=== PATIENT | female | born 1975 | race Caucasian/White ===

== ENCOUNTER 2018-04-15 16:44 | Emergency (ER) | payer OTHER ==
[~2018-04-15] VITALS: Ht 167.6 cm; Wt 103.6 kg
[~2018-04-15 16:44] MED LIST: 8 HO650T2 PO; ACET650S3 PR; ALBU17IN2 INH; ALBU83IN INH; AMLO10TA PO; ASPI81TA85 PO; ATIV2INJ2 IV; CALMOIN TOP; CARV12.5 PO; CARV6.25 OR; CRES20TA PO; CYMB60CA3 PO; FLUT22IN INH; GABA-843 PO; GABA600T4 PO; GLUC1000 OR; HEPA10004 SC; IMIT50TA PO; IMIT6INJ SQ; INSUHUMDS SC; INSULANT SC; INSULIN NPH SC; INSULIN REG SC; ISOS30TA4 PO; LOSA100T50 PO; LOVA1CAP17 PO; METO5INJ15 IV; METR5INJ IV; MULT1TAB8 PO; NORCOTAB PO; ONDA4INJ48 IV; PRAV80TA PO; PROG20CAP OR; PROT40IN4 IV; PROTPAK PO; RANI15TA PO; SING10TA32 PO; SLF IV; SODI0.9S IV; TIZA4CAP PO; [UNRECOGNIZED DRUG - CODE] IV; [UNRECOGNIZED DRUG - CODE] OU; prenatal; prenatal vitamin OR
[2018-04-15] MEDS ORDERED: K-TA10TA2 PO (22:48)
[2018-04-15] MEDS ORDERED: HYDR12.55 PO (22:48)
[2018-04-15] MEDS ORDERED: LOVE1INJ SC (22:48)
[2018-04-15] MEDS ORDERED: DULC10SU2 PR (22:48)
[2018-04-15] MEDS ORDERED: COZA100T2 PO (22:48)
[2018-04-15] MEDS ORDERED: MILK120011 PO (22:48)
[2018-04-15] MEDS ORDERED: ZOLO100T PO (22:48)
[2018-04-15] MEDS ORDERED: FLEEENE4 PR (22:48)
[2018-04-15] MEDS ORDERED: STEG5TAB PO (22:48)
[2018-04-15 22:59] VITALS: BP 186/97
[2018-04-15] MEDS ORDERED: amLODIPine 10 MG TAB PO ONE (23:00)
[2018-04-15 23:26] VITALS: BP 183/98
== END 2018-04-15 23:33 ==
LOC: M ED 16:44
DX: T14.91XA Suicide attempt, initial encounter (principal); T42.6X2A Poisoning by other antiepileptic and sedative-hypnotic drugs, intentional self-harm, initial encounter; Y92.89 Other specified places as the place of occurrence of the external cause; F32.9 Major depressive disorder, single episode, unspecified; J45.909 Unspecified asthma, uncomplicated; K21.9 Gastro-esophageal reflux disease without esophagitis; G47.33 Obstructive sleep apnea (adult) (pediatric); Z88.8 Allergy status to other drugs, medicaments and biological substances; Z88.1 Allergy status to other antibiotic agents; Z79.899 Other long term (current) drug therapy; Z79.4 Long term (current) use of insulin; Z79.82 Long term (current) use of aspirin

== ENCOUNTER → 2018-07-13 | Outpatient (REF) | payer OTHER ==
[~2018-07-13] MED LIST changes: -ATIV2INJ2 IV; +ATIV2INJ5 IV; +COZA100T2 PO; -CRES20TA PO; +CRES20TA2 PO; +DULC10SU2 PR; +FLEEENE4 PR; +HYDR-3715 PO; +HYDR12.55 PO; +K-TA10TA2 PO; +LOVE1INJ SC; +MILK120011 PO; -NORCOTAB PO; -PROG20CAP OR; +STEG5TAB PO; +ZOLO100T PO; +[UNRECOGNIZED DRUG - CODE] OR
[2018-07-13 13:36] LABS: HCG, SERUM QUANTITATIVE < 1.0 MIU/ML; THYROID STIMULATING HORMONE 0.478 uIU/ML (0.358-3.740)
[2018-07-13 13:40] LABS: LUTEINIZING HORMONE 8.3 mIU/mL
[2018-07-13 13:41] LABS: FOLLICLE STIMULATING HORMONE 5.8 mIU/mL
== END ==
LOC: M LAB REF 12:22
PROVIDERS: ATTEND Obstetrics & Gynecology
DX: N92.1 Excessive and frequent menstruation with irregular cycle (principal)

== ENCOUNTER 2018-09-15 05:39 | Day surgery (SDC) | payer OTHER ==
[~2018-09-15] VITALS: Ht 167.6 cm; Wt 101.1 kg
[~2018-09-15 05:39] MED LIST changes: +ADME100I SC; +BASA100I SC; +GABA-845 PO; +ZOLO50TA PO
[2018-09-15] MEDS ORDERED: PHENYLephrine HCL 500 MCG/5 ML (100MCG/ML) SYRINGE (J2370) ONE (05:40)
[2018-09-15] MEDS ORDERED: LIDOCAINE 1% MDV 20ML VIAL SQ PRN (06:00)
[2018-09-15 06:16] LABS: HEMATOCRIT 44.9 % (36.0-47.0); MEAN CORPUSCULAR HEMOGLOBIN 27.9 pg (27.0-33.0); MEAN CORPUSCULAR HGB CONC 33.4 g/dl (32.0-36.5); MEAN CORPUSCULAR VOLUME 83.5 fl (80.0-96.0); PLATELET COUNT, AUTOMATED 297 10^3/uL (150-450); RED BLOOD COUNT 5.38 10^6/uL (4.00-5.40); WHITE BLOOD COUNT 15.5 10^3/uL (4.0-10.0)
[2018-09-15] MEDS ORDERED: QC A650T3 PO (06:39)
[2018-09-15] MEDS ORDERED: LR 1,000 ML IV ONE (07:00)
[2018-09-15] MEDS ORDERED: PROPOFOL 200 MG/20 ML VIAL As Ordered ONE (07:04)
[2018-09-15] MEDS ORDERED: ONDANSETRON 4MG/2ML VIAL (J2405) As Ordered ONE (07:04)
[2018-09-15] MEDS ORDERED: dexameTHASONE 4 MG/ML 1ML VIAL (J1100) As Ordered ONE (07:04)
[2018-09-15] MEDS ORDERED: MIDAZOLAM INJ 2 MG/2 ML VIAL (J2250) As Ordered ONE (07:04)
[2018-09-15] MEDS ORDERED: fentaNYL 100 MCG/2 ML INJECTION (J3010) As Ordered ONE (07:04)
[2018-09-15] MEDS ORDERED: LIDOCAINE 2% INJ 100 MG/5 ML SDV (FOR ANES.) As Ordered ONE (07:04)
[2018-09-15] MEDS ORDERED: ACETAMINOPHEN 650 MG SUPP As Ordered ONE (07:22)
[2018-09-15 07:38] LABS: HCG, SERUM QUALITATIVE NEGATIVE (NEGATIVE)
[2018-09-15] MEDS ORDERED: KETOROLAC 60 MG/2 ML VIAL (J1885) As Ordered ONE (08:15)
--- NOTE | 2018-09-15 08:40 | RO ---
DATE OF PROCEDURE: 09/15/2018 Bettye is a 42-year-old female with extensive history of menometrorrhagia. After counseling in the office, a decision was made to proceed with dilation and curettage, hysteroscopy, and NovaSure ablation. The patient was also found to have an enlarged uterus on ultrasound. PREOPERATIVE DIAGNOSES: 1. Menometrorrhagia. 2. Enlarged uterus. POSTOPERATIVE DIAGNOSES: 1. Menometrorrhagia. 2. Enlarged uterus. 3. Distorted endometrial cavity with questionable fibroids. PROCEDURE: 1. Dilation and curettage. 2. Hysteroscopy. 3. NovaSure endometrial ablation. ANESTHESIA: Spinal. SURGEON: Dr. Alba [employer] SALES REPRESENTATIVE: COMPLICATIONS: None. ESTIMATED BLOOD LOSS: Less than 20 mL. SPECIMENS SENT TO THE LAB: Endometrial curettings. DESCRIPTION OF PROCEDURE: After obtaining informed consent and visiting with the patient in the preop area, she was then taken to the operating room where spinal anesthetic was found to be adequate. She was then draped and prepped in usual sterile fashion in a dorsal lithotomy position. At this point, a straight catheter to bladder was performed for approximately 100 mL of clear urine. We then placed a weighted speculum in the posterior fornix of the vagina. Using a Bond retractor, the lip of the cervix was then grasped with a single-tooth tenaculum. The uterus was sound to approximately 10 cm in size giving a cavity length of 6.5. The cervix was then serially dilated. The hysteroscope was inserted. Upon entering the endometrial cavity, the bilateral tubal lashes were visualized. The endometrial cavity appeared to be distorted but no distant polyp or fibroid was noted. At this point, the hysteroscope was removed. A sharp curettage of the endometrial lining was done and the tissues were sent to pathology for final diagnosis. We then inserted a NovaSure endometrial device. The cavity length was adjusted to 6.5. The cavity width to 4.5. A cavity test was then performed. After passing the cavity test, the device was enabled and the endometrial ablation cycle was inserted. The cycle lasted approximately 70 seconds. Good ablative process noted. Good hemostasis noted. The patient tolerated procedure well. She was then transferred to recovery room in stable condition.
[2018-09-15] MEDS ORDERED: LR 1,000 ML IV SCH (09:00)
[2018-09-15] MEDS ORDERED: ONDANSETRON 4MG/2ML VIAL (J2405) IV PRN (09:00)
[2018-09-15] MEDS ORDERED: METOCLOPRAMIDE INJ 10MG/2ML VIAL (J2765) IV PRN (09:00)
[2018-09-15] MEDS ORDERED: fentaNYL 100 MCG/2 ML INJECTION (J3010) IV PRN (09:00)
[2018-09-15] MEDS ORDERED: PERCOCET 5MG/325MG TAB PO PRN ×2 (09:00)
[2018-09-15] MEDS ORDERED: PHENYLEPHRINE HCL INJ 10 MG in D5W 100 ML IV ONE (09:45)
[2018-09-15] MEDS ORDERED: PHENYLephrine HCL 500 MCG/5 ML (100MCG/ML) SYRINGE (J2370) IV ONE (09:45)
[2018-09-15] MEDS ORDERED: ePHEDrine SULFATE 25 MG/5 ML(5MG/ML) SYRINGE IV ONE (09:45)
[2018-09-15 10:15] VITALS: BP 141/76
[2018-09-15] MEDS ORDERED: IBUPROFEN 800 MG TAB PO SCH (14:00)
== END 2018-09-15 11:15 | disposition home or self-care (01) ==
LOC: M SDC 05:39
PROVIDERS: ATTEND Obstetrics & Gynecology
DX: N92.0 Excessive and frequent menstruation with regular cycle (principal); N85.2 Hypertrophy of uterus; I10 Essential (primary) hypertension; E11.9 Type 2 diabetes mellitus without complications; K21.9 Gastro-esophageal reflux disease without esophagitis; E78.00 Pure hypercholesterolemia, unspecified; M79.7 Fibromyalgia; F32.9 Major depressive disorder, single episode, unspecified; F41.9 Anxiety disorder, unspecified; G47.30 Sleep apnea, unspecified; Z79.4 Long term (current) use of insulin; Z79.899 Other long term (current) drug therapy; Z88.8 Allergy status to other drugs, medicaments and biological substances; Z79.82 Long term (current) use of aspirin
CPT/HCPCS: 36415; 58563; 84703; 85027; 86850; 86900; 86901; 88305; J1100; J1885; J2250; J2370; J2405

== ENCOUNTER → 2018-09-28 | Outpatient (REF) ==
[~2018-09-28] MED LIST changes: +QC A650T3 PO
== END ==
LOC: M LAB LCGH 13:50
PROVIDERS: ATTEND Surgery
DX: K82.8 Other specified diseases of gallbladder (principal)

== ENCOUNTER → 2018-10-31 | Outpatient (REF) | payer OTHER ==
[2018-10-31 13:52] LABS: HEMATOCRIT 46.7 % (36.0-47.0); HEMOGLOBIN 15.7 g/dl (12.0-15.5); MEAN CORPUSCULAR HEMOGLOBIN 28.2 pg (27.0-33.0); MEAN CORPUSCULAR HGB CONC 33.6 g/dl (32.0-36.5); PLATELET COUNT, AUTOMATED 308 10^3/uL (150-450); RED BLOOD COUNT 5.56 10^6/uL (4.00-5.40); WHITE BLOOD COUNT 14.7 10^3/uL (4.0-10.0)
== END ==
LOC: M LAB REF 13:24
PROVIDERS: ATTEND Obstetrics & Gynecology
DX: N92.1 Excessive and frequent menstruation with irregular cycle (principal)

== ENCOUNTER 2021-02-16 13:17 | Emergency (ER) | payer OTHER ==
[~2021-02-16] VITALS: Ht 167.6 cm; Wt 107.3 kg
[~2021-02-16 13:17] MED LIST changes: -ASPI81TA85 PO; +ASPI81TA86 PO; -CYMB60CA3 PO; +CYMB60CA4 PO; +GABA-282 PO; +GABA-283 PO; -GABA-843 PO; -GABA-845 PO; +ISOS1TAB35 PO; -ISOS30TA4 PO; +LOSA100T45 PO; -LOSA100T50 PO; +ONDA4INJ4 IV; -ONDA4INJ48 IV; +PROV108A INH
[2021-02-16 14:07] LABS: HEMATOCRIT 45.9 % (36.0-47.0); HEMOGLOBIN 16.2 g/dl (12.0-15.5); MEAN CORPUSCULAR HEMOGLOBIN 31.4 pg (27.0-33.0); MEAN CORPUSCULAR HGB CONC 35.3 g/dl (32.0-36.5); PLATELET COUNT, AUTOMATED 192 10^3/uL (150-450); RED BLOOD COUNT 5.16 10^6/uL (4.00-5.40)
[2021-02-16 14:53] LABS: ACETAMINOPHEN LEVEL < 2.0 UG/ML (10.0-30.0); ALBUMIN 3.3 GM/DL (3.2-5.2); ALT/SGPT 24 U/L (12-78); BILIRUBIN,DIRECT < 0.1 MG/DL (0.0-0.2); BILIRUBIN,TOTAL 0.6 MG/DL (0.2-1.0); BLOOD UREA NITROGEN 15 MG/DL (7-18); CALCIUM LEVEL 9.6 MG/DL (8.5-10.1); CARBON DIOXIDE LEVEL 22 MEQ/L (21-32); CHLORIDE LEVEL 99 MEQ/L (98-107); CREATININE FOR GFR 0.62 MG/DL (0.55-1.30); ETHYL ALCOHOL (ETHANOL) < 0.003 % (0.000-0.010); GLOMERULAR FILTRATION RATE > 60.0 (>58); GLUCOSE, FASTING 307 MG/DL (70-100); SALICYLATE LEVEL 2.6 MG/DL (5.0-30.0); SODIUM LEVEL 134 MEQ/L (136-145); THYROID STIMULATING HORMONE 0.494 uIU/ML (0.358-3.740); TOTAL PROTEIN 7.2 GM/DL (6.4-8.2)
[2021-02-16 15:08] LABS: HCG, SERUM QUALITATIVE NEGATIVE (NEGATIVE)
[2021-02-16 15:22] LABS: AMPHETAMINES LEVEL URINE NEGATIVE (NEGATIVE); BARBITURATES URINE NEGATIVE (NEGATIVE); BENZODIAZEPINES URINE NEGATIVE (NEGATIVE); CANNABINOIDS URINE NEGATIVE (NEGATIVE); COCAINE METABOLITE URINE NEGATIVE (NEGATIVE); METHADONE URINE NEGATIVE (NEGATIVE); OPIATES URINE NEGATIVE (NEGATIVE); PHENCYCLIDINE URINE NEGATIVE (NEGATIVE)
[2021-02-16] MEDS ORDERED: FAMO40TA3 PO (18:45)
[2021-02-16] MEDS ORDERED: SUMA100T2 PO (18:45)
[2021-02-16] MEDS ORDERED: GABA800T4 PO (18:45)
[2021-02-16] MEDS ORDERED: LOVA1CAP17 PO (18:45)
[2021-02-16] MEDS ORDERED: AMLO1TAB24 PO (18:45)
[2021-02-16] MEDS ORDERED: BASA100I SC (18:45)
[2021-02-16] MEDS ORDERED: BUSP10TA PO (18:45)
[2021-02-16] MEDS ORDERED: CETI-24 PO (18:45)
[2021-02-16] MEDS ORDERED: LEVEMIR (INSULIN DETEMIR) 1 UNITS/0.01ML SC ONE (21:10)
[2021-02-16 22:38] VITALS: BP 152/89
== END 2021-02-16 22:44 | disposition home or self-care (01) ==
LOC: M ED 13:17
DX: F43.0 Acute stress reaction (principal); R45.851 Suicidal ideations; F41.9 Anxiety disorder, unspecified; F32.A Depression, unspecified; I10 Essential (primary) hypertension; I48.91 Unspecified atrial fibrillation; E11.9 Type 2 diabetes mellitus without complications; Z88.1 Allergy status to other antibiotic agents; Z88.8 Allergy status to other drugs, medicaments and biological substances

== ENCOUNTER 2022-09-03 02:06 | Inpatient (IN) | payer OTHER ==
[~2022-09-03] VITALS: Ht 170.2 cm; Wt 98.3 kg
[~2022-09-03 02:06] MED LIST changes: +ALBU2.5V10 INH; +ALBU6.7H6 INH; -ALBU83IN INH; +AMLO1TAB24 PO; +BUSP10TA PO; +CETI-24 PO; -COZA100T2 PO; +COZA100T3 PO; +FAMO40TA3 PO; +GABA800T4 PO; -K-TA10TA2 PO; -LOSA100T45 PO; +LOSA100T46 PO; +MONT-5 PO; +POTA-165 PO; -PROV108A INH; -SING10TA32 PO; +SUMA100T2 PO
[2022-09-03] MEDS ORDERED: ACETAMINOPHEN TAB 650MG DOSE (2X325MG) PO ONE (02:30)
[2022-09-03] MEDS ORDERED: NS 1,000 ML IV ONE (02:30)
[2022-09-03 02:35] LABS: ABG BASE EXCESS -1.4 (-2.0-2.0); ABG HCO3 25.3 MMOL/L (22.0-26.0); ABG O2 SATURATION 91.9 % (95.0-99.0); ABG PARTIAL PRESSURE CO2 50.2 mmHg (35.0-45.0); ABG PARTIAL PRESSURE O2 63.7 mmHg (75.0-100.0); ABG STANDARD HCO3 23.2 MMOL/L. (22.0-26.0); ABG TOTAL CO2 26.9 MMOL/L (22.0-29.0); ABG pH (ARTERIAL) 7.321 UNITS (7.350-7.450)
[2022-09-03 03:36] LABS: BASO # 0.1 10^3/uL (0.0-0.2); BASO % 0.9 % (0.0-1.0); EOS # 0.3 10^3/uL (0.0-0.5); EOS % 2.9 % (0.0-3.0); HEMATOCRIT 41.3 % (36.0-47.0); HEMOGLOBIN 14.3 g/dl (12.0-15.5); LYMPH # 2.4 10^3/uL (1.5-5.0); LYMPH % 23.9 % (24.0-44.0); MEAN CORPUSCULAR HEMOGLOBIN 32.1 pg (27.0-33.0); MEAN CORPUSCULAR HGB CONC 34.6 g/dl (32.0-36.5); MEAN CORPUSCULAR VOLUME 92.6 fl (80.0-96.0); MONO # 0.8 10^3/uL (0.0-0.8); MONO % 7.9 % (2.0-8.0); NEUTROPHILS # 6.4 10^3/uL (1.5-8.5); NEUTROPHILS % 63.8 % (36.0-66.0); PLATELET COUNT, AUTOMATED 261 10^3/uL (150-450); RED BLOOD COUNT 4.46 10^6/uL (4.00-5.40); WHITE BLOOD COUNT 10.1 10^3/uL (4.0-10.0)
[2022-09-03 04:02] LABS: BLOOD UREA NITROGEN 14 MG/DL (9-23); CALCIUM LEVEL 8.8 MG/DL (8.5-10.1); CARBON DIOXIDE LEVEL 29 MMOL/L (20-31); CHLORIDE LEVEL 101 MMOL/L (98-107); CREATININE FOR GFR 0.76 MG/DL (0.55-1.30); GLOMERULAR FILTRATION RATE > 60.0 (>58); GLUCOSE, FASTING 291 MG/DL (60-100); POTASSIUM SERUM 4.3 MMOL/L (3.5-5.1); SODIUM LEVEL 136 MMOL/L (136-145)
[2022-09-03] MEDS ORDERED: GLUCOSE 4GM CHEW TABLET PO PRN (04:45)
[2022-09-03] MEDS ORDERED: NS 1,000 ML IV SCH (04:45)
[2022-09-03] MEDS ORDERED: DEXTROSE 50% 50ML SYRINGE IV PRN (04:45)
[2022-09-03] MEDS ORDERED: GLUCAGON INJ 1MG VIAL SC PRN (04:45)
[2022-09-03] MEDS ORDERED: ALBUTEROL SULFATE 2.5MG/0.5ML INH NEB SOLN NEB PRN (05:50)
[2022-09-03] MEDS ORDERED: VANCOMYCIN HCL 1,000 MG, VIAL MATE ADAPTER 1 EACH in D5W 250 ML IV ONE ×2 (06:00→07:00)
[2022-09-03 06:20] LABS: INR 1.01; PARTIAL THROMBOPLASTIN TIME 24.3 SECONDS (24.8-34.2); PROTHROMBIN TIME 13.5 SECONDS (12.5-14.5)
[2022-09-03] MEDS: INSULIN LISPRO (NovoLOG) PER UNIT SC SCH ×5 (06:25→21:22)
[2022-09-03 06:31] LABS: RSV AMPLIFICATION NEGATIVE (NEGATIVE)
[2022-09-03] MEDS ORDERED: IMIT100T PO (06:31)
[2022-09-03] MEDS ORDERED: ASPI-161 PO (06:31)
[2022-09-03] MEDS ORDERED: OMEG10002 PO (06:31)
[2022-09-03] MEDS ORDERED: GABA800T4 PO (06:31)
[2022-09-03] MEDS ORDERED: CETI-14 PO (06:31)
[2022-09-03] MEDS ORDERED: TIZA10TA PO (06:31)
[2022-09-03] MEDS ORDERED: ZOLO100T PO (06:31)
[2022-09-03] MEDS ORDERED: VITMTA PO (06:31)
[2022-09-03] MEDS ORDERED: AMLO1TAB24 PO (06:31)
[2022-09-03] MEDS ORDERED: ACET1TAB37 PO (06:31)
[2022-09-03] MEDS ORDERED: LOSA100T46 PO (06:31)
[2022-09-03] MEDS ORDERED: ALBU8.5H INH (06:31)
[2022-09-03] MEDS ORDERED: PANT-23 PO (06:31)
[2022-09-03] MEDS ORDERED: FAMO40TA3 PO (06:31)
[2022-09-03] MEDS ORDERED: HOME MED LIST COMPLETE! XX SCH (06:35)
[2022-09-03] MEDS ORDERED: SERTRALINE 100 MG TAB PO SCH (09:00)
[2022-09-03] MEDS: NYSTATIN 100,000 UNITS/GM TOPICAL PWD 15GM TOP SCH ×2 (09:00→21:22)
[2022-09-03 09:54] LABS: ABG BASE EXCESS -0.2 (-2.0-2.0); ABG HCO3 27.7 MMOL/L (22.0-26.0); ABG O2 SATURATION 93.1 % (95.0-99.0); ABG PARTIAL PRESSURE CO2 59.5 mmHg (35.0-45.0); ABG PARTIAL PRESSURE O2 69.8 mmHg (75.0-100.0); ABG STANDARD HCO3 24.2 MMOL/L. (22.0-26.0); ABG TOTAL CO2 29.5 MMOL/L (22.0-29.0); ABG pH (ARTERIAL) 7.286 UNITS (7.350-7.450)
[2022-09-03] MEDS: PANTOPRAZOLE 40MG TAB (PROTONIX) PO SCH (10:00)
[2022-09-03] MEDS: CETIRIZINE (ZyrTEC) 10 MG TAB PO SCH (10:00)
[2022-09-03] MEDS: CARVedilol 12.5 MG TAB PO SCH ×2 (10:01→21:25)
[2022-09-03] MEDS: ASPIRIN 81MG ENTERIC TABLET PO SCH (10:01)
[2022-09-03] MEDS: ISOSORBIDE MON. (IMDUR) 30MG XR TAB PO SCH (10:01)
[2022-09-03 13:09] VITALS: BP 153/85; TEMP 97.8; O2SAT 98
[2022-09-03 13:40] LABS: HEMOGLOBIN A1c 11.2 % (4.0-6.0)
[2022-09-03] MEDS: VANCOMYCIN HCL 1,000 MG, VIAL MATE ADAPTER 1 EACH in D5W 250 ML IV SCH ×2 (14:42→21:21)
[2022-09-03] MEDS: MUPIROCIN 2% OINT 22 GM TUBE TOP SCH (14:42)
[2022-09-03 15:10] LABS: ABG BASE EXCESS 1.9 (-2.0-2.0); ABG HCO3 28.1 MMOL/L (22.0-26.0); ABG O2 SATURATION 92.3 % (95.0-99.0); ABG PARTIAL PRESSURE CO2 49.8 mmHg (35.0-45.0); ABG PARTIAL PRESSURE O2 61.4 mmHg (75.0-100.0); ABG STANDARD HCO3 26.1 MMOL/L. (22.0-26.0); ABG TOTAL CO2 29.6 MMOL/L (22.0-29.0); ABG pH (ARTERIAL) 7.369 UNITS (7.350-7.450)
[2022-09-03 16:16] VITALS: BP 142/70; TEMP 98.1; O2SAT 94
[2022-09-03 19:56] VITALS: BP 138/82; TEMP 97.3; O2SAT 93
[2022-09-03] MEDS ORDERED: LEVEMIR (INSULIN DETEMIR) 1 UNITS/0.01ML SC SCH (21:00)
[2022-09-03] MEDS: FAMOTIDINE 20 MG TAB PO SCH (21:23)
[2022-09-03] MEDS: TAMSULOSIN 0.4 MG CAP PO SCH (21:23)
[2022-09-03] MEDS: ACETAMINOPHEN TAB 650MG DOSE (2X325MG) PO PRN (21:23)
[2022-09-03] MEDS: ROSUVASTATIN 10 MG TAB (CRESTOR) PO SCH (21:23)
[2022-09-03 23:42] VITALS: BP 142/79; TEMP 97.1; O2SAT 93
[2022-09-04] MEDS ORDERED: UNRESOLVED CLARIFICATION ENTRY XX SCH (00:01)
[2022-09-04 03:37] VITALS: BP 136/81; TEMP 97.6; O2SAT 94
[2022-09-04 05:24] LABS: BASO # 0.1 10^3/uL (0.0-0.2); BASO % 0.7 % (0.0-1.0); EOS # 0.2 10^3/uL (0.0-0.5); EOS % 3.2 % (0.0-3.0); HEMATOCRIT 38.2 % (36.0-47.0); LYMPH # 2.1 10^3/uL (1.5-5.0); MEAN CORPUSCULAR HEMOGLOBIN 31.2 pg (27.0-33.0); MEAN CORPUSCULAR VOLUME 91.6 fl (80.0-96.0); MONO # 0.6 10^3/uL (0.0-0.8); MONO % 8.2 % (2.0-8.0); NEUTROPHILS # 4.4 10^3/uL (1.5-8.5); NEUTROPHILS % 59.5 % (36.0-66.0); PLATELET COUNT, AUTOMATED 203 10^3/uL (150-450); RED BLOOD COUNT 4.17 10^6/uL (4.00-5.40); WHITE BLOOD COUNT 7.5 10^3/uL (4.0-10.0)
[2022-09-04 05:57] LABS: VANCOMYCIN LEVEL TROUGH 14.6 UG/ML (10.0-20.0)
[2022-09-04 05:59] LABS: ALBUMIN 2.8 G/DL (3.2-5.2); ALKALINE PHOSPHATASE 71 U/L (46-116); ALT/SGPT 11 U/L (7.0-40); AST/SGOT 14 U/L (<34); BILIRUBIN,TOTAL 0.4 MG/DL (0.3-1.2); BLOOD UREA NITROGEN 10 MG/DL (9-23); CALCIUM LEVEL 8.4 MG/DL (8.5-10.1); CARBON DIOXIDE LEVEL 29 MMOL/L (20-31); CHLORIDE LEVEL 102 MMOL/L (98-107); CREATININE FOR GFR 0.48 MG/DL (0.55-1.30); GLOMERULAR FILTRATION RATE > 60.0 (>58); GLUCOSE, FASTING 205 MG/DL (60-100); SODIUM LEVEL 135 MMOL/L (136-145); TOTAL PROTEIN 5.9 G/DL (5.7-8.2)
[2022-09-04] MEDS: VANCOMYCIN HCL 1,000 MG, VIAL MATE ADAPTER 1 EACH in D5W 250 ML IV SCH (06:17)
[2022-09-04 07:40] VITALS: BP 144/78; TEMP 96.7; O2SAT 97
[2022-09-04] MEDS: CETIRIZINE (ZyrTEC) 10 MG TAB PO SCH (08:34)
[2022-09-04] MEDS: INSULIN LISPRO (NovoLOG) PER UNIT SC SCH ×4 (08:34→20:59)
[2022-09-04] MEDS: CARVedilol 12.5 MG TAB PO SCH ×2 (08:35→21:11)
[2022-09-04] MEDS: ISOSORBIDE MON. (IMDUR) 30MG XR TAB PO SCH (08:35)
[2022-09-04] MEDS: ASPIRIN 81MG ENTERIC TABLET PO SCH (08:35)
[2022-09-04] MEDS: NYSTATIN 100,000 UNITS/GM TOPICAL PWD 15GM TOP SCH ×2 (08:35→21:10)
[2022-09-04] MEDS: PANTOPRAZOLE 40MG TAB (PROTONIX) PO SCH (08:35)
[2022-09-04] MEDS: MUPIROCIN 2% OINT 22 GM TUBE TOP SCH (08:36)
[2022-09-04 08:47] LABS: ABG BASE EXCESS 5.4 (-2.0-2.0); ABG O2 SATURATION 91.6 % (95.0-99.0); ABG PARTIAL PRESSURE CO2 49.3 mmHg (35.0-45.0); ABG PARTIAL PRESSURE O2 56.1 mmHg (75.0-100.0); ABG STANDARD HCO3 29.2 MMOL/L. (22.0-26.0); ABG TOTAL CO2 32.6 MMOL/L (22.0-29.0); ABG pH (ARTERIAL) 7.417 UNITS (7.350-7.450)
[2022-09-04] MEDS ORDERED: LEVEMIR (INSULIN DETEMIR) 1 UNITS/0.01ML SC SCH ×2 (09:00→21:00)
[2022-09-04] MEDS: CEPHALEXIN 500 MG CAP PO SCH ×3 (13:00→21:11)
[2022-09-04 15:51] VITALS: BP 144/81; TEMP 97.3; O2SAT 93
[2022-09-04] MEDS: KETOROLAC 30 MG/ML 1ML VIAL IV SCH ×2 (17:00→21:10)
[2022-09-04 20:14] VITALS: BP 132/70; TEMP 97.9; O2SAT 95
[2022-09-04 20:57] VITALS: BP 132/78
[2022-09-04] MEDS: TAMSULOSIN 0.4 MG CAP PO SCH (21:10)
[2022-09-04] MEDS: FAMOTIDINE 20 MG TAB PO SCH (21:10)
[2022-09-04] MEDS: ROSUVASTATIN 10 MG TAB (CRESTOR) PO SCH (21:11)
[2022-09-05 03:48] VITALS: BP 154/82; TEMP 97.3; O2SAT 96
[2022-09-05] MEDS: KETOROLAC 30 MG/ML 1ML VIAL IV SCH ×4 (04:00→21:04)
[2022-09-05 06:15] LABS: BASO # 0.1 10^3/uL (0.0-0.2); BASO % 0.7 % (0.0-1.0); EOS # 0.2 10^3/uL (0.0-0.5); EOS % 3.2 % (0.0-3.0); HEMATOCRIT 35.9 % (36.0-47.0); HEMOGLOBIN 12.7 g/dl (12.0-15.5); LYMPH # 2.1 10^3/uL (1.5-5.0); LYMPH % 30.2 % (24.0-44.0); MEAN CORPUSCULAR HEMOGLOBIN 32.1 pg (27.0-33.0); MEAN CORPUSCULAR HGB CONC 35.4 g/dl (32.0-36.5); MEAN CORPUSCULAR VOLUME 90.7 fl (80.0-96.0); MONO # 0.6 10^3/uL (0.0-0.8); NEUTROPHILS # 3.9 10^3/uL (1.5-8.5); NEUTROPHILS % 56.3 % (36.0-66.0); PLATELET COUNT, AUTOMATED 189 10^3/uL (150-450); RED BLOOD COUNT 3.96 10^6/uL (4.00-5.40); WHITE BLOOD COUNT 6.9 10^3/uL (4.0-10.0)
[2022-09-05 07:02] LABS: BLOOD UREA NITROGEN 17 MG/DL (9-23); CALCIUM LEVEL 8.9 MG/DL (8.5-10.1); CARBON DIOXIDE LEVEL 28 MMOL/L (20-31); CHLORIDE LEVEL 99 MMOL/L (98-107); CREATININE FOR GFR 0.63 MG/DL (0.55-1.30); GLOMERULAR FILTRATION RATE > 60.0 (>58); GLUCOSE, FASTING 211 MG/DL (60-100); POTASSIUM SERUM 3.7 MMOL/L (3.5-5.1); SODIUM LEVEL 135 MMOL/L (136-145)
[2022-09-05 07:53] VITALS: BP 132/83; TEMP 97.3; O2SAT 99
[2022-09-05] MEDS: LEVEMIR (INSULIN DETEMIR) 1 UNITS/0.01ML SC SCH ×2 (08:18→21:04)
[2022-09-05] MEDS: INSULIN LISPRO (NovoLOG) PER UNIT SC SCH ×4 (08:19→20:23)
[2022-09-05] MEDS: CARVedilol 12.5 MG TAB PO SCH ×2 (08:20→21:07)
[2022-09-05] MEDS: ISOSORBIDE MON. (IMDUR) 30MG XR TAB PO SCH (08:20)
[2022-09-05] MEDS: CETIRIZINE (ZyrTEC) 10 MG TAB PO SCH (08:21)
[2022-09-05] MEDS: PANTOPRAZOLE 40MG TAB (PROTONIX) PO SCH (08:21)
[2022-09-05] MEDS: CEPHALEXIN 500 MG CAP PO SCH ×4 (08:21→21:04)
[2022-09-05] MEDS: ASPIRIN 81MG ENTERIC TABLET PO SCH (08:21)
[2022-09-05] MEDS: NYSTATIN 100,000 UNITS/GM TOPICAL PWD 15GM TOP SCH ×2 (08:22→21:03)
[2022-09-05] MEDS: MUPIROCIN 2% OINT 22 GM TUBE TOP SCH (08:22)
[2022-09-05 20:01] VITALS: BP 162/80; TEMP 98.2; O2SAT 95
[2022-09-05] MEDS: ROSUVASTATIN 10 MG TAB (CRESTOR) PO SCH (21:04)
[2022-09-05] MEDS: TAMSULOSIN 0.4 MG CAP PO SCH (21:04)
[2022-09-05] MEDS: FAMOTIDINE 20 MG TAB PO SCH (21:04)
[2022-09-06 03:43] VITALS: BP 155/83; TEMP 97.9; O2SAT 97
[2022-09-06] MEDS: KETOROLAC 30 MG/ML 1ML VIAL IV SCH ×4 (03:49→20:57)
[2022-09-06 05:35] LABS: BASO % 0.4 % (0.0-1.0); EOS # 0.2 10^3/uL (0.0-0.5); EOS % 2.9 % (0.0-3.0); HEMATOCRIT 36.7 % (36.0-47.0); HEMOGLOBIN 12.9 g/dl (12.0-15.5); LYMPH % 28.5 % (24.0-44.0); MEAN CORPUSCULAR HEMOGLOBIN 31.4 pg (27.0-33.0); MEAN CORPUSCULAR HGB CONC 35.1 g/dl (32.0-36.5); MEAN CORPUSCULAR VOLUME 89.3 fl (80.0-96.0); MONO # 0.6 10^3/uL (0.0-0.8); MONO % 8.6 % (2.0-8.0); NEUTROPHILS # 4.1 10^3/uL (1.5-8.5); NEUTROPHILS % 59.2 % (36.0-66.0); PLATELET COUNT, AUTOMATED 194 10^3/uL (150-450); RED BLOOD COUNT 4.11 10^6/uL (4.00-5.40); WHITE BLOOD COUNT 6.9 10^3/uL (4.0-10.0)
[2022-09-06 05:57] LABS: BLOOD UREA NITROGEN 17 MG/DL (9-23); CALCIUM LEVEL 9.5 MG/DL (8.5-10.1); CARBON DIOXIDE LEVEL 28 MMOL/L (20-31); CHLORIDE LEVEL 101 MMOL/L (98-107); CREATININE FOR GFR 0.61 MG/DL (0.55-1.30); GLOMERULAR FILTRATION RATE > 60.0 (>58); GLUCOSE, FASTING 204 MG/DL (60-100); POTASSIUM SERUM 3.9 MMOL/L (3.5-5.1); SODIUM LEVEL 137 MMOL/L (136-145)
[2022-09-06 08:02] VITALS: BP 150/85; TEMP 97.4; O2SAT 94
[2022-09-06] MEDS: ASPIRIN 81MG ENTERIC TABLET PO SCH (08:23)
[2022-09-06] MEDS: LEVEMIR (INSULIN DETEMIR) 1 UNITS/0.01ML SC SCH ×2 (08:24→20:56)
[2022-09-06] MEDS: PANTOPRAZOLE 40MG TAB (PROTONIX) PO SCH (08:24)
[2022-09-06] MEDS: CETIRIZINE (ZyrTEC) 10 MG TAB PO SCH (08:24)
[2022-09-06] MEDS: ISOSORBIDE MON. (IMDUR) 30MG XR TAB PO SCH (08:24)
[2022-09-06] MEDS: INSULIN LISPRO (NovoLOG) PER UNIT SC SCH ×4 (08:24→20:56)
[2022-09-06] MEDS: NYSTATIN 100,000 UNITS/GM TOPICAL PWD 15GM TOP SCH ×2 (08:25→20:55)
[2022-09-06] MEDS: CEPHALEXIN 500 MG CAP PO SCH ×4 (08:25→20:57)
[2022-09-06] MEDS: CARVedilol 12.5 MG TAB PO SCH ×2 (08:25→20:57)
[2022-09-06] MEDS: MUPIROCIN 2% OINT 22 GM TUBE TOP SCH (08:25)
[2022-09-06 12:21] VITALS: BP 132/80; TEMP 97.3; O2SAT 95
[2022-09-06] MEDS: ACETAMINOPHEN TAB 650MG DOSE (2X325MG) PO PRN (13:43)
[2022-09-06 20:00] VITALS: BP 188/92; TEMP 98.3; O2SAT 96
[2022-09-06] MEDS: ROSUVASTATIN 10 MG TAB (CRESTOR) PO SCH (20:56)
[2022-09-06] MEDS: TAMSULOSIN 0.4 MG CAP PO SCH (20:56)
[2022-09-06] MEDS: FAMOTIDINE 20 MG TAB PO SCH (20:57)
[2022-09-07 04:00] VITALS: BP_SYST 182; BP_SYST 185; BP_SYST 189; BP_DIAS 101; BP_DIAS 102; BP_DIAS 104; TEMP 97.4; O2SAT 95
[2022-09-07] MEDS: KETOROLAC 30 MG/ML 1ML VIAL IV SCH ×2 (04:16→10:50)
[2022-09-07 04:52] VITALS: BP 186/106
[2022-09-07] MEDS ORDERED: hydrALAZINE 20MG/ML 1ML VIAL IV ONE (04:55)
[2022-09-07] MEDS ORDERED: SUMAtriptan SUCCINATE 25 MG TAB PO PRN (05:00)
[2022-09-07] MEDS ORDERED: ALBUTEROL 90 MCG/ACT 8GM HFA INHALER INH PRN (05:00)
[2022-09-07] MEDS ORDERED: amLODIPine 5 MG TAB PO SCH (05:00)
[2022-09-07] MEDS ORDERED: LOSARTAN 50MG TABLET PO SCH (05:00)
[2022-09-07 06:26] VITALS: BP 166/98
[2022-09-07 06:35] LABS: BASO % 0.6 % (0.0-1.0); EOS # 0.2 10^3/uL (0.0-0.5); EOS % 2.5 % (0.0-3.0); HEMATOCRIT 37.9 % (36.0-47.0); HEMOGLOBIN 13.3 g/dl (12.0-15.5); LYMPH % 27.8 % (24.0-44.0); MEAN CORPUSCULAR HEMOGLOBIN 31.1 pg (27.0-33.0); MEAN CORPUSCULAR HGB CONC 35.1 g/dl (32.0-36.5); MEAN CORPUSCULAR VOLUME 88.8 fl (80.0-96.0); MONO # 0.6 10^3/uL (0.0-0.8); MONO % 8.6 % (2.0-8.0); NEUTROPHILS # 4.2 10^3/uL (1.5-8.5); NEUTROPHILS % 59.7 % (36.0-66.0); PLATELET COUNT, AUTOMATED 201 10^3/uL (150-450); RED BLOOD COUNT 4.27 10^6/uL (4.00-5.40); WHITE BLOOD COUNT 7.1 10^3/uL (4.0-10.0)
[2022-09-07 07:00] LABS: BLOOD UREA NITROGEN 19 MG/DL (9-23); CARBON DIOXIDE LEVEL 30 MMOL/L (20-31); CHLORIDE LEVEL 98 MMOL/L (98-107); CREATININE FOR GFR 0.72 MG/DL (0.55-1.30); GLOMERULAR FILTRATION RATE > 60.0 (>58); GLUCOSE, FASTING 268 MG/DL (60-100); SODIUM LEVEL 135 MMOL/L (136-145)
[2022-09-07] MEDS ORDERED: LACTOBACILLUS ACIDOPHILUS CAP (BACID) PO SCH (08:00)
[2022-09-07 08:11] VITALS: BP 171/89; TEMP 97.3; O2SAT 96
[2022-09-07] MEDS: INSULIN LISPRO (NovoLOG) PER UNIT SC SCH ×4 (08:20→12:45)
[2022-09-07] MEDS: ASPIRIN 81MG ENTERIC TABLET PO SCH (08:21)
[2022-09-07 08:22] VITALS: BP 171/89
[2022-09-07] MEDS: CARVedilol 12.5 MG TAB PO SCH (08:22)
[2022-09-07] MEDS: PANTOPRAZOLE 40MG TAB (PROTONIX) PO SCH (08:22)
[2022-09-07] MEDS: ISOSORBIDE MON. (IMDUR) 30MG XR TAB PO SCH (08:22)
[2022-09-07] MEDS: CEPHALEXIN 500 MG CAP PO SCH ×2 (08:23→12:45)
[2022-09-07] MEDS: CETIRIZINE (ZyrTEC) 10 MG TAB PO SCH (08:23)
[2022-09-07] MEDS: MUPIROCIN 2% OINT 22 GM TUBE TOP SCH (08:24)
[2022-09-07] MEDS: NYSTATIN 100,000 UNITS/GM TOPICAL PWD 15GM TOP SCH (08:25)
[2022-09-07] MEDS ORDERED: GABAPENTIN 400MG CAP PO SCH (09:00)
[2022-09-07] MEDS ORDERED: SERTRALINE 100 MG TAB PO SCH (09:00)
[2022-09-07] MEDS ORDERED: LEVEMIR (INSULIN DETEMIR) 1 UNITS/0.01ML SC SCH (09:00)
[2022-09-07] MEDS ORDERED: FLOM0.4C39 PO (11:48)
[2022-09-07] MEDS ORDERED: BASA100I SC (11:48)
[2022-09-07] MEDS ORDERED: NYST10006 TOP (11:48)
[2022-09-07] MEDS ORDERED: MUPI2OI TOP (11:48)
[2022-09-07] MEDS ORDERED: RISATAB3 PO (11:48)
[2022-09-07] MEDS ORDERED: CEPH500C PO (11:48)
== END 2022-09-07 16:40 | DRG 952 ==
LOC: EDBD 02:06 → M ED 02:06 → M ED INP 04:43 → ENRESERV 11:51 → M PCU 13:01
PROVIDERS: ADMIT Family Medicine; ATTEND Internal Medicine Nephrology
PROC: 0JBQ3ZZ Excision of Right Foot Subcutaneous Tissue and Fascia, Percutaneous Approach (ICD-10-PCS; principal; 2022-09-03)
DX: T42.6X2A Poisoning by other antiepileptic and sedative-hypnotic drugs, intentional self-harm, initial encounter (principal); J96.21 Acute and chronic respiratory failure with hypoxia; J96.22 Acute and chronic respiratory failure with hypercapnia; E11.40 Type 2 diabetes mellitus with diabetic neuropathy, unspecified; E11.621 Type 2 diabetes mellitus with foot ulcer; E66.2 Morbid (severe) obesity with alveolar hypoventilation; E78.00 Pure hypercholesterolemia, unspecified; E78.5 Hyperlipidemia, unspecified; F32.A Depression, unspecified; I10 Essential (primary) hypertension; J45.909 Unspecified asthma, uncomplicated; J98.11 Atelectasis; K21.9 Gastro-esophageal reflux disease without esophagitis; L03.031 Cellulitis of right toe; F41.9 Anxiety disorder, unspecified; M79.7 Fibromyalgia; Z88.8 Allergy status to other drugs, medicaments and biological substances; Z79.899 Other long term (current) drug therapy; Z79.82 Long term (current) use of aspirin; Z79.4 Long term (current) use of insulin; I48.91 Unspecified atrial fibrillation; K76.0 Fatty (change of) liver, not elsewhere classified; Z87.891 Personal history of nicotine dependence; L97.519 Non-pressure chronic ulcer of other part of right foot with unspecified severity

== ENCOUNTER 2022-09-07 14:07 | Inpatient (IN) | payer BC, MEDICAID, OTHER ==
[~2022-09-07] VITALS: Ht 167.6 cm; Wt 98.3 kg
[~2022-09-07 14:07] MED LIST changes: +ACET1TAB37 PO; +ALBU8.5H INH; +ASPI-161 PO; +CEPH500C PO; +CETI-14 PO; +FLOM0.4C39 PO; +IMIT100T PO; +MUPI2OI TOP; +NYST10006 TOP; +OMEG10002 PO; +PANT-23 PO; +RISATAB3 PO; +TIZA10TA PO; +VITMTA PO
[2022-09-07] MEDS ORDERED: IBUPROFEN 400MG TAB PO PRN (15:45)
[2022-09-07] MEDS ORDERED: GLUCOSE 4GM CHEW TABLET PO PRN (15:45)
[2022-09-07] MEDS ORDERED: MOM 30ML SUSPENSION UDC PO PRN (15:45)
[2022-09-07] MEDS ORDERED: MAALOX 30 ML SUSP *UDC PO PRN (15:45)
[2022-09-07] MEDS ORDERED: ACETAMINOPHEN TAB 650MG DOSE (2X325MG) PO PRN (15:45)
[2022-09-07] MEDS ORDERED: SUMAtriptan SUCCINATE 25 MG TAB PO PRN (15:45)
[2022-09-07] MEDS ORDERED: diphenhydrAMINE 25MG CAP PO PRN (15:45)
[2022-09-07] MEDS ORDERED: ALBUTEROL 90 MCG/ACT 8GM HFA INHALER INH PRN (15:45)
[2022-09-07] MEDS ORDERED: GLUCAGON INJ 1MG VIAL SC PRN (15:45)
[2022-09-07] MEDS ORDERED: GABAPENTIN 400MG CAP PO SCH (16:00)
[2022-09-07] MEDS: LACTOBACILLUS ACIDOPHILUS CAP (BACID) PO SCH (17:57)
[2022-09-07] MEDS: INSULIN LISPRO (NovoLOG) PER UNIT SC SCH ×2 (17:57→17:58)
[2022-09-07] MEDS: CEPHALEXIN 500 MG CAP PO SCH ×2 (17:57→20:30)
[2022-09-07] MEDS: TAMSULOSIN 0.4 MG CAP PO SCH (20:29)
[2022-09-07] MEDS: NYSTATIN 100,000 UNITS/GM TOPICAL PWD 15GM TOP SCH (20:29)
[2022-09-07] MEDS: ROSUVASTATIN 10 MG TAB (CRESTOR) PO SCH (20:30)
[2022-09-07] MEDS: FAMOTIDINE 20 MG TAB PO SCH (20:30)
[2022-09-07] MEDS: CARVedilol 12.5 MG TAB PO SCH (20:33)
[2022-09-07] MEDS: LEVEMIR (INSULIN DETEMIR) 1 UNITS/0.01ML SC SCH (20:33)
[2022-09-07] MEDS ORDERED: INSULIN LISPRO (NovoLOG) PER UNIT SC SCH (21:00)
[2022-09-08 06:53] VITALS: BP 144/80; TEMP 97.4; O2SAT 97
[2022-09-08] MEDS: INSULIN LISPRO (NovoLOG) PER UNIT SC SCH ×6 (07:38→17:08)
[2022-09-08] MEDS: LACTOBACILLUS ACIDOPHILUS CAP (BACID) PO SCH ×2 (07:38→17:07)
[2022-09-08] MEDS ORDERED: SERTRALINE 100 MG TAB PO SCH (09:00)
[2022-09-08] MEDS: PANTOPRAZOLE 40MG TAB (PROTONIX) PO SCH (09:51)
[2022-09-08] MEDS: LEVEMIR (INSULIN DETEMIR) 1 UNITS/0.01ML SC SCH ×2 (09:51→20:29)
[2022-09-08] MEDS: ASPIRIN 81MG ENTERIC TABLET PO SCH (09:51)
[2022-09-08] MEDS: LOSARTAN 50MG TABLET PO SCH (09:52)
[2022-09-08] MEDS: CETIRIZINE (ZyrTEC) 10 MG TAB PO SCH (09:52)
[2022-09-08] MEDS: CEPHALEXIN 500 MG CAP PO SCH ×4 (09:52→20:33)
[2022-09-08] MEDS: amLODIPine 5 MG TAB PO SCH (09:52)
[2022-09-08] MEDS: CARVedilol 12.5 MG TAB PO SCH ×2 (09:53→20:33)
[2022-09-08] MEDS: NYSTATIN 100,000 UNITS/GM TOPICAL PWD 15GM TOP SCH ×2 (09:53→20:28)
[2022-09-08] MEDS: MUPIROCIN 2% OINT 22 GM TUBE TOP SCH (13:08)
[2022-09-08 16:50] VITALS: BP 122/59; TEMP 97.3; O2SAT 96
[2022-09-08] MEDS: ROSUVASTATIN 10 MG TAB (CRESTOR) PO SCH (20:29)
[2022-09-08] MEDS: FAMOTIDINE 20 MG TAB PO SCH (20:33)
[2022-09-08] MEDS: TAMSULOSIN 0.4 MG CAP PO SCH (20:33)
[2022-09-08] MEDS: traZODone 50 MG TAB PO PRN (20:33)
[2022-09-09 06:18] VITALS: BP 112/70; TEMP 97.3; O2SAT 98
[2022-09-09] MEDS: INSULIN LISPRO (NovoLOG) PER UNIT SC SCH ×6 (07:07→17:14)
[2022-09-09] MEDS: LACTOBACILLUS ACIDOPHILUS CAP (BACID) PO SCH ×2 (08:42→17:09)
[2022-09-09 09:01] VITALS: BP 126/76
[2022-09-09] MEDS: CEPHALEXIN 500 MG CAP PO SCH ×4 (09:04→20:26)
[2022-09-09] MEDS: CETIRIZINE (ZyrTEC) 10 MG TAB PO SCH (09:04)
[2022-09-09] MEDS: amLODIPine 5 MG TAB PO SCH (09:05)
[2022-09-09] MEDS: CARVedilol 12.5 MG TAB PO SCH ×2 (09:06→20:26)
[2022-09-09] MEDS: ASPIRIN 81MG ENTERIC TABLET PO SCH (09:06)
[2022-09-09] MEDS: LOSARTAN 50MG TABLET PO SCH (09:08)
[2022-09-09] MEDS: PANTOPRAZOLE 40MG TAB (PROTONIX) PO SCH (09:08)
[2022-09-09] MEDS: SERTRALINE 100 MG TAB PO SCH (09:08)
[2022-09-09] MEDS: SERTRALINE HCL 25 MG TABLET PO SCH (09:08)
[2022-09-09] MEDS: MUPIROCIN 2% OINT 22 GM TUBE TOP SCH (09:10)
[2022-09-09] MEDS: LEVEMIR (INSULIN DETEMIR) 1 UNITS/0.01ML SC SCH ×2 (09:10→20:29)
[2022-09-09] MEDS: NYSTATIN 100,000 UNITS/GM TOPICAL PWD 15GM TOP SCH ×2 (09:11→20:27)
[2022-09-09 18:57] VITALS: BP 140/86; TEMP 97.8; O2SAT 98
[2022-09-09] MEDS: ROSUVASTATIN 10 MG TAB (CRESTOR) PO SCH (20:26)
[2022-09-09] MEDS: TAMSULOSIN 0.4 MG CAP PO SCH (20:26)
[2022-09-09] MEDS: traZODone 50 MG TAB PO PRN (20:26)
[2022-09-09] MEDS: FAMOTIDINE 20 MG TAB PO SCH (20:26)
[2022-09-10 06:16] VITALS: BP 110/62; TEMP 98.1; O2SAT 99
[2022-09-10] MEDS: INSULIN LISPRO (NovoLOG) PER UNIT SC SCH ×2 (06:36→07:30)
[2022-09-10] MEDS ORDERED: SERT25TA21 PO (08:33)
[2022-09-10 09:05] VITALS: BP 136/70
[2022-09-10] MEDS: LOSARTAN 50MG TABLET PO SCH (09:06)
[2022-09-10] MEDS: SERTRALINE 100 MG TAB PO SCH (09:06)
[2022-09-10] MEDS: LACTOBACILLUS ACIDOPHILUS CAP (BACID) PO SCH (09:06)
[2022-09-10] MEDS: ASPIRIN 81MG ENTERIC TABLET PO SCH (09:06)
[2022-09-10] MEDS: PANTOPRAZOLE 40MG TAB (PROTONIX) PO SCH (09:07)
[2022-09-10] MEDS: CEPHALEXIN 500 MG CAP PO SCH (09:07)
[2022-09-10] MEDS: SERTRALINE HCL 25 MG TABLET PO SCH (09:07)
[2022-09-10 09:08] VITALS: BP 136/70
[2022-09-10] MEDS: amLODIPine 5 MG TAB PO SCH (09:08)
[2022-09-10] MEDS: CETIRIZINE (ZyrTEC) 10 MG TAB PO SCH (09:08)
[2022-09-10] MEDS: CARVedilol 12.5 MG TAB PO SCH (09:08)
[2022-09-10] MEDS: NYSTATIN 100,000 UNITS/GM TOPICAL PWD 15GM TOP SCH (09:09)
[2022-09-10] MEDS: LEVEMIR (INSULIN DETEMIR) 1 UNITS/0.01ML SC SCH (09:10)
[2022-09-10] MEDS: MUPIROCIN 2% OINT 22 GM TUBE TOP SCH (09:23)
== END 2022-09-10 11:24 | disposition home or self-care (01) | DRG 753 ==
LOC: M PSY 17:22
PROVIDERS: ADMIT Psychiatry & Neurology Psychiatry; ATTEND Student in an Organized Health Care Education/Training Program
DX: F32.89 Other specified depressive episodes (principal); F43.20 Adjustment disorder, unspecified; M79.7 Fibromyalgia; F41.9 Anxiety disorder, unspecified; Z79.899 Other long term (current) drug therapy; Z79.82 Long term (current) use of aspirin; Z79.4 Long term (current) use of insulin; Z88.8 Allergy status to other drugs, medicaments and biological substances; G47.33 Obstructive sleep apnea (adult) (pediatric); E66.2 Morbid (severe) obesity with alveolar hypoventilation; E78.5 Hyperlipidemia, unspecified; I10 Essential (primary) hypertension; J45.909 Unspecified asthma, uncomplicated; E11.40 Type 2 diabetes mellitus with diabetic neuropathy, unspecified; K76.0 Fatty (change of) liver, not elsewhere classified; K21.9 Gastro-esophageal reflux disease without esophagitis; E11.621 Type 2 diabetes mellitus with foot ulcer; L97.519 Non-pressure chronic ulcer of other part of right foot with unspecified severity; K57.30 Diverticulosis of large intestine without perforation or abscess without bleeding; Z87.891 Personal history of nicotine dependence; L03.115 Cellulitis of right lower limb; Z68.35 Body mass index [BMI] 35.0-35.9, adult; M54.59 Other low back pain

== ENCOUNTER 2022-10-22 10:58 | Emergency (ER) | payer MEDICAID, OTHER ==
[~2022-10-22] VITALS: Ht 165.1 cm; Wt 101.7 kg
[~2022-10-22 10:58] MED LIST changes: -GABA-283 PO; +GABA-284 PO; +SERT25TA21 PO
[2022-10-22] MEDS ORDERED: SODIUM BICARBONATE 8.4% INJ 50ML SYRINGE ONE (10:59)
[2022-10-22] MEDS ORDERED: NALOXONE INJ 0.4MG/1ML VIAL ONE (10:59)
[2022-10-22] MEDS ORDERED: EPINEPHrine 1MG/10ML SYRINGE 1.5IN ONE (10:59)
[2022-10-22] MEDS ORDERED: EPINEPHrine 1MG/10ML SYRINGE 1.5IN IV STA ×2 (11:08→11:28)
[2022-10-22] MEDS ORDERED: SODIUM BICARBONATE 8.4% INJ 50ML SYRINGE IV STA ×3 (11:08→11:46)
[2022-10-22] MEDS ORDERED: NALOXONE INJ 0.4MG/1ML VIAL As Ordered ONE ×2 (11:18→11:22)
[2022-10-22] MEDS ORDERED: NOREPINEPHRINE 4MG IN D5 250ML 4 MG in IV 1 EA IV SCH ×2 (11:20)
[2022-10-22 11:26] LABS: HEMATOCRIT 45.2 % (36.0-47.0); HEMOGLOBIN 14.1 g/dl (12.0-15.5); MEAN CORPUSCULAR HEMOGLOBIN 31.4 pg (27.0-33.0); MEAN CORPUSCULAR HGB CONC 31.2 g/dl (32.0-36.5); MEAN CORPUSCULAR VOLUME 100.7 fl (80.0-96.0); PLATELET COUNT, AUTOMATED 137 10^3/uL (150-450); RED BLOOD COUNT 4.49 10^6/uL (4.00-5.40)
[2022-10-22] MEDS ORDERED: NALOXONE 2MG/2ML SYRINGE IV STA (11:28)
[2022-10-22 11:41] LABS: ABG BASE EXCESS -32.5 (-2.0-2.0); ABG HCO3 5.8 MMOL/L (22.0-26.0); ABG O2 SATURATION 93.9 % (95.0-99.0); ABG PARTIAL PRESSURE CO2 56.1 mmHg (35.0-45.0); ABG PARTIAL PRESSURE O2 127.7 mmHg (75.0-100.0); ABG STANDARD HCO3 4.1 MMOL/L. (22.0-26.0); ABG TOTAL CO2 7.5 MMOL/L (22.0-29.0)
[2022-10-22 11:41] LABS: INR 1.68; PROTHROMBIN TIME 20.1 SECONDS (12.5-14.5)
[2022-10-22] MEDS: EPINEPHrine HCL INJ 1 MG in D5W 240 ML IV SCH ×2 (11:41→12:12)
[2022-10-22 11:42] LABS: MAGNESIUM LEVEL 2.4 MG/DL (1.8-2.4); PARTIAL THROMBOPLASTIN TIME 57.7 SECONDS (24.8-34.2)
[2022-10-22 11:43] LABS: ABG pH (ARTERIAL) 6.634 UNITS (7.350-7.450)
[2022-10-22] MEDS ORDERED: HumuLIN R (REGULAR) INSULIN (NovoLIN R) **100U/ML** PER UNIT IV ONE (11:50)
[2022-10-22 11:51] LABS: FREE T4 0.78 NG/DL (0.89-1.76); THYROID STIMULATING HORMONE 0.775 uIU/ML (0.55-4.78)
[2022-10-22 11:53] VITALS: O2SAT 99
[2022-10-22 11:54] VITALS: BP 87/53
[2022-10-22 11:59] LABS: ATYPICAL LYMPH 5 % (0-5); EOSINOPHILS 1 % (0-3); LYMPHOCYTES 10 % (16-44); METAMYELOCYTES 5 % (0-0); MONOCYTES 1 % (0-5); NEUTROPHILS 61 % (28-66)
[2022-10-22 12:01] LABS: PLATELET ESTIMATE NORMAL (NORMAL)
[2022-10-22 12:08] LABS: ALBUMIN 2.9 G/DL (3.2-5.2); ALKALINE PHOSPHATASE 112 U/L (46-116); ALT/SGPT 55 U/L (7.0-40); AST/SGOT 166 U/L (<34); BILIRUBIN,DIRECT 0.2 MG/DL (<0.4); BILIRUBIN,TOTAL 0.6 MG/DL (0.3-1.2); BLOOD UREA NITROGEN 28 MG/DL (9-23); CALCIUM LEVEL 10.9 MG/DL (8.5-10.1); CARBON DIOXIDE LEVEL < 10.0 MMOL/L (20-31); CHLORIDE LEVEL 90 MMOL/L (98-107); CPK CREATINE PHOSPHOKINASE 935 U/L (34-145); CREATININE FOR GFR 1.38 MG/DL (0.55-1.30); GLOMERULAR FILTRATION RATE 43.4 (>58); GLUCOSE, FASTING 644 MG/DL (60-100); MB/CK RELATIVE INDEX 0.42 (< OR =4); POTASSIUM SERUM 3.9 MMOL/L (3.5-5.1); SODIUM LEVEL 135 MMOL/L (136-145); TOTAL PROTEIN 6.9 G/DL (5.7-8.2)
[2022-10-22] MEDS ORDERED: EPINEPHRINE HCL IV SCH (12:15)
[2022-10-22] MEDS ORDERED: INSULIN IV RATE CHANGE DOCUMENTATION ML/HR XX SCH (12:15)
[2022-10-22] MEDS ORDERED: D5W IV SCH (12:15)
[2022-10-22] MEDS ORDERED: INSULIN REGULAR IN 0.9 % NACL 100 UNIT in IV 1 EA IV SCH ×2 (12:15)
== END 2022-10-22 15:24 | disposition expired ==
LOC: M ED 10:58
DX: I46.9 Cardiac arrest, cause unspecified (principal); R00.0 Tachycardia, unspecified; I44.4 Left anterior fascicular block; I45.10 Unspecified right bundle-branch block; E66.9 Obesity, unspecified; F32.A Depression, unspecified; J45.909 Unspecified asthma, uncomplicated; G47.33 Obstructive sleep apnea (adult) (pediatric); E78.5 Hyperlipidemia, unspecified; I10 Essential (primary) hypertension; E11.9 Type 2 diabetes mellitus without complications; Z79.52 Long term (current) use of systemic steroids; Z79.891 Long term (current) use of opiate analgesic; Z79.810 Long term (current) use of selective estrogen receptor modulators (SERMs); Z79.899 Other long term (current) drug therapy; Z88.8 Allergy status to other drugs, medicaments and biological substances; Z91.048 Other nonmedicinal substance allergy status; Z87.891 Personal history of nicotine dependence
CPT/HCPCS: 36600; 71045; 80048; 80076; 82550; 82553; 82803; 83735; 84100; 84439; 84443; 85025; 85610; 85730; 87040; 87077; 87186; 93005; 93041; 94760; 96365; 96368; 96375; 96376; 99291; 99292; J0171; J1815; J2310